=== PATIENT | male | born 1935 | race Caucasian/White ===

== ENCOUNTER 2016-09-12 10:59 | Day surgery (SDC) | payer MEDICARE, BC ==
[~2016-09-12] VITALS: Ht 182.9 cm; Wt 113.9 kg
[~2016-09-12 10:59] MED LIST: ALLO300T2 PO; ASPI81 PO; CARV20 PO; COZA50TA PO; ENAL20TA PO; FURO1TAB93 PO; GLIM4TAB PO; LEVO.025 PO; METALOZONE PO; NIAS10004 PO; POTA20PA PO; RAPA8CAP PO; TAB-TAB PO
[2016-09-12] MEDS ORDERED: METO2.5T PO (11:44)
[2016-09-12] MEDS ORDERED: TORS20TA PO (11:44)
[2016-09-12] MEDS ORDERED: LOSA50TA PO (11:44)
[2016-09-12] MEDS ORDERED: CARV25TA PO (11:44)
[2016-09-12] MEDS ORDERED: ASPI81CH CHEW (11:44)
[2016-09-12] MEDS ORDERED: VITATAB11 (11:44)
[2016-09-12] MEDS ORDERED: PROC20005 SQ (11:44)
[2016-09-12] MEDS ORDERED: ALLO300T2 PO (11:44)
[2016-09-12] MEDS ORDERED: LEVO50TA4 PO (11:44)
[2016-09-12] MEDS ORDERED: VITA200013 (11:44)
[2016-09-12 11:48] LABS: AUTOMATED NEUTROPHIL # 2.7 TH/MM3 (1.8-7.7); BASOPHIL % 0.3 % (0.0-2.0); EOSINOPHIL # 0.1 TH/MM3 (0-0.4); EOSINOPHIL % 1.2 % (0.0-4.0); HEMATOCRIT 26.6 % (39.0-51.0); LYMPH % 31.2 % (9.0-44.0); LYMPHOCYTE # 1.6 TH/MM3 (1.0-4.8); MEAN CELL VOLUME 87.6 FL (80.0-100.0); MEAN CORPUSCULAR HEMOGLOBIN 29.4 PG (27.0-34.0); MEAN CORPUSCULAR HGB CONC 33.5 % (32.0-36.0); MONO % 14.8 % (0.0-8.0); NEUT % 52.5 % (16.0-70.0); RED BLOOD COUNT 3.03 MIL/MM3 (4.50-5.90); RED CELL DISTRIBUTION WIDTH 26.7 % (11.6-17.2); WHITE BLOOD COUNT 5.1 TH/MM3 (4.0-11.0)
[2016-09-12] MEDS ORDERED: SODIUM CHLORID 0.9% 500 ML IV SCH (12:00)
[2016-09-12] MEDS ORDERED: INSULIN HUMAN REGULAR 1,000 UNITS/10 ML VIAL SQ PRN (12:00)
[2016-09-12] MEDS ORDERED: LACTATED RINGER'S 1000 ML IV SCH (12:00)
[2016-09-12] MEDS ORDERED: METOPROLOL TARTRATE 25 MG TAB PO PRN (12:00)
[2016-09-12 12:01] LABS: APTT (PATIENT) 27.2 SEC (24.3-30.1); PROTHROMBIN TIME - PATIENT 11.2 SEC (9.8-11.6)
[2016-09-12 12:04] LABS: BICARBONATE 23.9 MEQ/L (21.0-32.0); POTASSIUM 3.6 MEQ/L (3.5-5.1)
[2016-09-12 12:09] LABS: HEMO FLAGS AUTO DIFF
[2016-09-12] MEDS ORDERED: CHLORHEXIDINE GLUCONATE 2 % 1 PACK (2 CLOTHS) TOP SCH (12:30)
[2016-09-12] MEDS ORDERED: ceFAZolin 2 GM PREMIX 50 ML IV SCH (12:30)
[2016-09-12] MEDS ORDERED: NS 1000 ML IV SCH (12:30)
[2016-09-12] MEDS ORDERED: POVIDONE IODINE 5% (ANTISEPSIS KIT) 4 APPLICATIONS EACH NARE SCH (12:30)
[2016-09-12] MEDS ORDERED: VANCOMYCIN 1000 MG/NS 250 ML IV SCH ×2 (12:30)
[2016-09-12] MEDS ORDERED: MUPIROCIN 2% OINT 1 APPLIC/GM SYR NASAL SCH (12:30)
[2016-09-12 12:36] LABS: BANDS 14 % (0-6); EOSINOPHILS 4 % (0-4); MYELOCYTES 3 % (0-0); NEUTROPHIL # MANUAL DIFF 2.8 TH/MM3 (1.8-7.7); OVALOCYTES 1+ (NORMAL); POLYS (SEG NEUTROPHILS) 37 % (16-70); WBC DIFF SAMPLE 100
[2016-09-12 12:37] LABS: PLATELET ESTIMATE SMEAR NORMAL (NORMAL); PLATELET MORPHOLOGY ENLARGED (NORMAL); SCAN/DIFF FINAL DIFF MANUAL
[2016-09-12] MEDS ORDERED: VANCOMYCIN 500 MG VIAL ONE (12:58)
[2016-09-12] MEDS ORDERED: LIDOCAINE HCL 2% 50 ML VIAL ONE (12:58)
[2016-09-12] MEDS ORDERED: IOHEXOL 350 MG/ML 100 ML BTL (for EPS) OTHER ONE (14:20)
[2016-09-12] MEDS ORDERED: MIDAZOLAM HCL 2 MG/2 ML VIAL ONE (15:39)
[2016-09-12] MEDS ORDERED: SODIUM CHLORIDE 0.9% FLUSH 5 ML FLUSH IVF SCH (21:00)
--- NOTE | 2016-09-12 22:20 | EKG ---
Date Performed: 09/12/2016 Time Performed: 11:42:44 PTAGE: 81 years EKG: Ventricular pacing Pacemaker rhythm - no further analysis Abnormal ECG PREVIOUS TRACING : 02/07/2011 06.01 Rate has decreased DOCTOR: Tyler Johnson Interpretating Date/Time 09/12/2016 22:19:39
--- NOTE | 2016-09-22 09:37 | MP ---
cc: CANDY MCDONALD M.D., [place] DATE OF SURGERY: 09/12/2016 PROCEDURE Biventricular ICD change out, pulse generator with MARTINE. INDICATION Congestive heart failure and cardiomyopathy. CONSENT A full informed consent was obtained prior to the procedure. The risks of , bleeding, myocardial infarction, perforation, aspiration, pneumothorax and in particular infection were reviewed with the patient and family. They fully appeared to understand. PROCEDURAL STATEMENTS The patient was draped and prepped in the usual manner. The left infraclavicular area was carefully infiltrated with lidocaine. The patient was given anesthesia as per the Anesthesia Department. The patient had the procedure initially on 02/06/2011 when he had an ejection fraction of 10% with a bundle branch block and prolonged QRS interval. At that time he had an LV lead placed, a left ventricular lead in the lateral vein, a RV placed and a right atrial appendage being placed. The leads were found to be intact. The pocket was opened using blunt, sharp, cautery dissection and a plasma knife. Scar tissue was removed using the plasma knife with care taken not to damage the pacemaker leads. The pocket was flushed with vancomycin solution on several occasions. The three leads were removed and placed into the new pulse generator. The old pulse generator was explanted and removed. The new pulse generator was sewn down to pectoralis fascia. The pocket was flushed with vancomycin solution and the pocket closed in three layers. CONCLUSION Successful change out of biventricular [employer] device. PLAN Will plan to discharge the patient later today. Candy Mcdonald MD, FRCP,[facility] HAJ/SHADE /3:00 PM /9:20 AM
== END 2016-09-12 17:10 | disposition home or self-care (01) ==
LOC: HDOC 10:59 → HDIC 11:00 → HDOC 17:10
PROVIDERS: ATTEND Internal Medicine Cardiovascular Disease
DX: Z45.02 Encounter for adjustment and management of automatic implantable cardiac defibrillator (principal); I50.9 Heart failure, unspecified; I42.8 Other cardiomyopathies; I48.0 Paroxysmal atrial fibrillation; I25.10 Atherosclerotic heart disease of native coronary artery without angina pectoris; I95.9 Hypotension, unspecified; D64.9 Anemia, unspecified; E11.9 Type 2 diabetes mellitus without complications
CPT/HCPCS: 33264; 80048; 85007; 85027; 85610; 85730; 93005; C1882; J2250; J3370; Q9967